=== PATIENT | female | born 1985 | race Asian ===

== ENCOUNTER 2019-10-10 18:16 | Emergency (ER) | payer SELFPAY ==
[~2019-10-10] VITALS: Ht 165.1 cm; Wt 71.2 kg
[2019-10-10 18:55] VITALS: Ht 165.1 cm; Wt 71.2 kg
[2019-10-10 20:55] VITALS: BP 111/79
== END 2019-10-10 20:55 | disposition home or self-care (01) ==
LOC: ED 18:16
DX: R05 Cough (principal); J45.909 Unspecified asthma, uncomplicated